=== PATIENT | male | born 1945 | race Caucasian/White ===

== ENCOUNTER 2021-07-03 20:43 | Emergency (ER) | payer MEDICARE ==
[2021-07-03 21:59] LABS: HEMOGLOBIN 14.9 gm/dl (14.0-17.5); RED BLOOD COUNT 4.95 M/UL (4.20-5.50); WHITE BLOOD COUNT 12.2 K/UL (4.5-11.0)
[2021-07-03 22:12] LABS: BUN/CREATININE RATIO 32 (0-10)
[2021-07-03] MEDS ORDERED: TORADOL 10 MG T10 MG PO (23:27)
== END 2021-07-03 23:43 | disposition home or self-care (01) ==
LOC: ER1 20:43
PROVIDERS: Family Medicine
DX: S22.43XA Multiple fractures of ribs, bilateral, initial encounter for closed fracture (principal); S50.311A Abrasion of right elbow, initial encounter; V89.2XXA Person injured in unspecified motor-vehicle accident, traffic, initial encounter; Y92.410 Unspecified street and highway as the place of occurrence of the external cause
CPT/HCPCS: 70450; 71260; 80053; 85025; 90471; 90715; 96374; 99284; J1885; Q9967